=== PATIENT | male | born 1955 | race Caucasian/White ===

== ENCOUNTER 2024-07-25 19:18 | Emergency (ER) | payer MEDICARE, SELFPAY ==
[2024-07-25 19:30] VITALS: BP 121/80; PULSE 62; RESP 16; TEMP 36; O2SAT 98
--- NOTE | 2024-07-25 19:50 | ED_ITS ---
HPI - Abdominal Pain General Chief Complaint: Abdominal Pain Stated Complaint: ABD PAIN/NAUSEA Time Seen by Provider: 07/25/24 19:42 Source: patient and RN notes reviewed Mode of arrival: ambulatory Limitations: no limitations History of Present Illness HPI narrative: 68-year-old male presents with concern for epigastric pain. He has had 3 episodes of epigastric pain that did not radiate since Saturday. They also 3 happened a few hours after eating. He reports at times he had felt nauseated prior to or during the pain, he has not vomited. He denies diarrhea. Reports mild constipation which is not unusual for him. His last bowel movement was today. He denies chest pain, new shortness of breath. Reports a baseline shortness of breath when he is in AFib, he has chronic AFib and goes in and out of it. He is scheduled to have an ablation soon. He denies fever, body aches. Reports occasional chills. He denies any current pain, he had pain from 1700 until about 1830 before he came into the [facility]. He reports he took Tums after the 1st episode MD elicited complaint: abdominal pain Related Data Home Medications ?Medication ?Instructions ?Recorded ?Confirmed ?Last Taken ?Type allopurinol 100 mg tablet mg 07/25/24 Unknown History apixaban 5 mg tablet (Eliquis) mg 07/25/24 Unknown History aspirin 81 mg tablet,delayed 81 mg PO DAILY 07/25/24 07/25/24 Unknown History release (Adult Aspirin Regimen) diltiazem HCl 180 mg mg PO 07/25/24 Unknown History capsule,extended release 24 hr metoprolol tartrate 25 mg tablet mg 07/25/24 Unknown History rosuvastatin 20 mg tablet mg 07/25/24 Unknown History tamsulosin 0.4 mg capsule mg PO 07/25/24 Unknown History Allergies Allergy/AdvReac Type Severity Reaction Status Date / Time hydrochlorothiazide AdvReac Mild Other Verified 07/25/24 19:45 Review of Systems Review of Systems: CONSTITUTIONAL: Denies malaise, sweats, or fever. Reports occasional chills ENT: Denies rhinorrhea, congestion, sinus pain, otalgia or sore throat. CARDIOVASCULAR: Denies chest pain, palpitations, or edema. RESPIRATORY: Denies cough or dyspnea. GASTROINTESTINAL: Reports epigastric pain, denies other abdominal pain. Reports occasional nausea. Denies vomiting, diarrhea, bloody, or mucous stools. GENITOURINARY: Denies dysuria or hematuria. MUSCULOSKELETAL: Denies myalgia. NEUROLOGIC: Denies headache. All systems reviewed & are unremarkable except as noted in HPI and below PMFSH Comments At time of signature, agree with nursing past medical, surgical, social and family history. There is no relevant family history pertinent to the presenting complaint Exam Narrative: GENERAL: Well-appearing, well-nourished, and in no acute distress. HEAD: Normocephalic, atraumatic. EYES: PERRLA, conjunctivae clear, and EOMI. ENT: Nares clear, turbinates pink, no rhinorrhea or epistaxis. Mucous membranes moist. Oropharynx without edema, erythema, or lesions. Tonsils not enlarged and without exudate. NECK: Supple. No lymphadenopathy CHEST: Speaks in full sentences. No respiratory distress. HEART: Irregular rhythm. ABDOMEN: Soft, obese, nondistended, nontender. No guarding, rebound tenderness, or rigidity. No pulsatile masses. Bowel sounds present in all four quadrants. No organomegaly. Negative Riley?s sign. No periumbilical tenderness. No Supra public tenderness or distension. Good femoral pulses bilaterally. No hernia noted. No scars or surface trauma. SKIN: Warm, dry, no rash. NEURO: Alert and oriented x3. PSYCH: Normal mood and affect Course Course Emergency Course: I discussed test findings with this patient, possible differential diagnosis for his discomfort. I explained neuro limited diagnostic capability at the [facility] for his symptoms. We discussed possible transfer to ER tonight verses discharge with medications for potential GERD. Patient would like to be discharged and will monitor his symptoms, will call his doctor on Saturday morning for further evaluation. He understands he needs to go to the ER if anything worsens or changes. Patient is aware of, understands and agrees to treatment plan. Anticipatory guidance given. Patient agrees to follow-up as directed and is aware of reasons to seek care at the emergency department. Portions of this record may have been created with voice recognition software Level of Care: [facility] Visit Vital Signs Vital signs: Vital Signs Temperature 96.8 F L 07/25/24 19:30 Pulse Rate 62 07/25/24 19:30 Respiratory Rate 16 07/25/24 19:30 Blood Pressure 121/80 07/25/24 19:30 Pulse Oximetry 98 07/25/24 19:30 Temperature 96.8 F L 07/25/24 19:30 Pulse Rate 62 07/25/24 19:30 Respiratory Rate 16 07/25/24 19:30 Blood Pressure 121/80 07/25/24 19:30 Pulse Oximetry 98 07/25/24 19:30 Reviewed. MDM - Abdominal Pain MDM Narrative Medical decision making narrative: No evidence of pancreatitis, AAA, mesenteric ischemia, small bowel obstruction, diverticulitis, colitis, appendicitis. No evidence of ACS, pericarditis, myocarditis, pulmonary embolism, pneumothorax, pneumonia, Zoster, or esophageal perforation. Historically not abrupt in onset, tearing or ripping, pulses symmetric, no evidence of aortic dissection. No pulse deficit. Not associated with abdominal or back pain.Patient has no history of peptic ulcer, H. pylori, chronic aspirin NSAID or corticosteroid use, chronic alcohol use, no history of inflammatory bowel disease, no history of active abdominal infection or malignancy. Patient has no history of hernia or intra-abdominal surgeries, patient denies absence of flatus, constipation, melena, hematemesis. Patient denies post-prandial pain. No pain-out of proportion. Exam findings show no acute concerns or changes; patient is non-toxic appearing and is in no distress. Patient is appropriate for outpatient treatment and follow-up. ECG Data EKG #1: ECG completion date: 07/25/24 ECG completion time: 19:59 Prior ECG tracings: not available for review Interpretation: Rate 118, QRS duration 120 QTC 351, QTC 421 atrial fibrillation with RVR. Patient has history of atrial fibrillation, is scheduled for an ablation. Reports he goes in and out of AFib often atrial fibrillation Critical Care Time Critical Care Time Critical Care Time: No Discharge Plan Discharge Clinical Impression: Epigastric pain Patient Disposition: Home, Self-Care Condition: Stable Instructions: Epigastric Pain (ED) Additional Instructions: 1) Please follow-up with your primary care doctor in the next 1-2 days. 2) If you have any worsening of symptoms or any other urgent concerns please go to the ER. 3) Please take medications as prescribed and continue taking your home medications as usual. 4) Please try to eat a low-fat diet until you can follow- up with your doctor. Please read and follow information included in discharge instructions. Patient Language: Scottish Prescriptions: New omeprazole 40 mg capsule,delayed release(DR/EC) 40 mg PO DAILY Qty: 14 0RF famotidine [Pepcid] 40 mg tablet 40 mg PO DAILY Qty: 14 0RF alum-mag hydroxide-simeth [Mylanta Maximum Strength] 400-400-40 mg/5 mL suspension 10 ml PO TID PRN (Reason: indigestion) Qty: 355 0RF No Action diltiazem HCl 180 mg capsule,extended release 24hr PO allopurinol 100 mg tablet tamsulosin 0.4 mg capsule PO rosuvastatin 20 mg tablet metoprolol tartrate 25 mg tablet Eliquis 5 mg tablet aspirin [Adult Aspirin Regimen] 81 mg tablet,delayed release (DR/EC) 81 mg PO DAILY Follow-up/Referrals: Jordyn,Wei Molina MD [Primary Care Provider] - Time of Disposition: 20:02
--- NOTE | 2024-07-25 19:50 | ECG_ITS ---
Test Date: 2024-07-25 19:59:06 Measurements Intervals [place] Rate: 118 P: 0 MI: 0 QRS: -19 QRSD: 100 T: 83 QT: 351 QTc: 492 Interpretive Statements ATRIAL FIBRILLATION WITH RAPID VENTRICULAR RESPONSE DELAYED PRECORDIAL R/S TRANSITION LEFT VENTRICULAR HYPERTROPHY WITH ST-T CHANGE NONSPECIFIC ST & T-WAVE ABNORMALITY- LATERAL LEADS BASELINE ARTIFACT- I, II, III, AVR, AVL, AVF ABNORMAL ECG No previous ECG available for comparison Electronically Signed On 07-26-2024 08:22:08 [employer] by Riccardo Jennings D.O.
== END 2024-07-25 20:04 | disposition home or self-care (01) ==
PROVIDERS: Emergency Provider Nurse Practitioner; PCP Family Medicine
DX: R10.13 Epigastric pain (principal); I48.20 Chronic atrial fibrillation, unspecified; Z79.82 Long term (current) use of aspirin
CPT/HCPCS: 93005; 99203; G0463